=== PATIENT | female | born 1990 | race Caucasian/White ===

== ENCOUNTER 2018-05-10 20:07 | Emergency (ER) | payer MEDICAID ==
[~2018-05-10] VITALS: Ht 162.6 cm; Wt 113.4 kg
[2018-05-11] MEDS ORDERED: methylPREDNISolone SOD SUCC 125 MG/2 ML VL IM ONE (00:30)
[2018-05-11] MEDS ORDERED: methylPREDNISolone SOD SUCC 125 MG/2 ML VL ONE (01:03)
[2018-05-11 01:35] VITALS: BP 134/80
== END 2018-05-11 01:38 | disposition home or self-care (01) ==
LOC: ER 20:07
DX: B00.9 Herpesviral infection, unspecified (principal)
CPT/HCPCS: 99283; J2930